=== PATIENT | female | born 1985 | race Caucasian/White ===

== ENCOUNTER → 2017-03-15 | Outpatient (CLI) | payer OTHER ==
[2017-01-15 15:14] VITALS: BP 123/55
[~2017-03-15] MED LIST: ACET325T9 PO; AMOX1TAB61 PO; LEVO75TA5 PO; MONT10TA9 PO; PNV1TABL25 PO; PRED20TA PO; TRAM50TA PO
--- NOTE | 2017-03-15 15:12 | RAD ---
Cervical spine radiographs History: Neck pain with radiculopathy into the right arm. Comparison: None. Findings: AP, lateral, and open-mouth odontoid views of the cervical spine. No acute fracture or malalignment is identified. No prevertebral soft tissue swelling is seen. No significant degeneration is appreciated. Impression: Unremarkable cervical spine radiographs.
== END | disposition home or self-care (01) ==
LOC: DXRADRC 14:44
PROVIDERS: ATTEND Physician Assistant Medical
DX: M54.12 Radiculopathy, cervical region (principal)
CPT/HCPCS: 72040

== ENCOUNTER 2017-07-12 15:31 | Emergency (ER) | payer OTHER ==
[2017-07-12] MEDS ORDERED: METOCLOPRAMIDE HCL 10 MG/2 ML VIAL. IV ONE (16:00)
[2017-07-12] MEDS ORDERED: PROCHLORPERAZINE 10 MG TABLET. PO ONE (16:00)
[2017-07-12] MEDS ORDERED: diphenhydrAMINE 50 MG/ML VIAL IVP ONE (16:00)
--- NOTE | 2017-07-12 17:24 | PHYS DOC ---
Past History Past Medical History: Hyperthyroid, Other Past Surgical History: Appendectomy, Cholecystectomy, Alcohol Use: None Drug Use: None Adult General Chief Complaint Chief Complaint: HEADACHE HPI HPI Patient is a 32-year-old female with a history of migraine headaches who comes to the ED with a complaint of a migraine headache that was present when she woke up at 6 AM today. It has worsened slowly throughout the day. Patient originally went to work but then left work early at about 10 AM. She took some Phenergan, Tylenol, and Advil at home. She tried to sleep but was not able to. Her friend brought her to the ED for treatment. Patient states that the headache is across her forehead. She has felt a bit dizzy and had some nausea with it. She denies recent URI or congestion. She has not had vomiting or diarrhea but has had nausea today. Patient is in good general health. She denies . Her is deployed. Review of Systems Review of Systems Constitutional: Denies fever or chills [] Eyes: Denies change in visual acuity, redness, or eye pain [] HENT: Denies nasal congestion or sore throat [] GI: Nausea but no vomiting : Denies Neurologic: As in history of present illness Current Medications Current Medications Current Medications Medications (Trade) Dose Ordered Sig/Traci Start Time Stop Time Status Last Admin Dose Admin Diphenhydramine HCl (Benadryl) 25 mg 1X ONCE 07/12/17 16:00 07/12/17 17:09 DC 07/12/17 16:30 25 MG Fentanyl Citrate (Fentanyl 2ml Vial) 75 mcg 1X ONCE 07/12/17 17:30 07/12/17 17:31 Metoclopramide HCl (Reglan) 10 mg 1X ONCE 07/12/17 16:00 07/12/17 16:01 DC 07/12/17 16:29 10 MG Prochlorperazine Maleate (Compazine) 10 mg 1X ONCE 07/12/17 16:00 07/12/17 16:01 DC 07/12/17 16:30 10 MG Allergies Allergies Allergies Coded Allergies Type Severity Reaction Last Updated Verified codeine Allergy Severe Itching 02/07/16 Yes diphenhydramine Allergy Severe Anxiety 02/07/16 Yes corn Allergy Unknown 02/07/16 Yes gluten Allergy Unknown 02/07/16 Yes soy Allergy Unknown 02/07/16 Yes Physical Exam Physical Exam Constitutional: Well developed, well nourished, no acute distress, non-toxic appearance. [] HENT: Normocephalic, atraumatic, bilateral external ears normal, oropharynx moist, no oral exudates, nose normal. [] Eyes: PERRLA, EOMI, conjunctiva normal, no discharge. [] Neck: Normal range of motion, no tenderness, supple, no stridor. [] Cardiovascular:Heart rate regular rhythm, no murmur [] Lungs & Thorax: Bilateral breath sounds clear to auscultation [] Abdomen: Bowel sounds normal, soft, no tenderness, no masses, no pulsatile masses. [] Skin: Warm, dry, no erythema, no rash. [] Back: No tenderness, no CVA tenderness. [] Extremities: No tenderness, no cyanosis, no clubbing, ROM intact, no edema. [] Neurologic: Alert and oriented X 3, normal motor function, normal sensory function, no focal deficits noted. [] Psychologic: Affect normal, judgement normal, mood normal. [] Current Patient Data Vital Signs Vital Signs Date Time Temp Pulse Resp B/P (MAP) Pulse Ox O2 Delivery O2 Flow Rate FiO2 07/12/17 15:46 98.4 82 20 100 Room Air EKG EKG [] Radiology/Procedures Radiology/Procedures [] Course & Med Decision Making Course & Med Decision Making Pertinent Labs and Imaging studies reviewed. (See chart for details) 32-year-old female with a history of migraines who presents with a headache today that was not thunderclap in onset, is not the worst headache she's ever had, it is typical for migraines for her. Patient was treated with IV fluids, IV Benadryl, Reglan, and Compazine. Her chart had stated an allergy to Benadryl but the reported side effect was "anxiety" so I believe that a cocktail including Benadryl would be safe. Recheck of the patient by ED RN, patient states that she is no better at all. She called for her friend to come back and was given a dose of IV fentanyl prior to discharge. See instructions for plan. [] Dragon Disclaimer Dragon Disclaimer This chart was dictated in whole or in part using Voice Recognition software in a busy, high-work load, and often noisy Emergency Department environment. It may contain unintended and wholly unrecognized errors or omissions. Departure Departure: Impression: Primary Impression: Migraine Disposition: 01 HOME, SELF-CARE Condition: IMPROVED Referrals: OSVALDO REED (PCP) Patient Instructions: Migraine Headache, [id number] Additional Instructions: Go home and rest, try to get several hours of sleep in a dark quiet room. No driving for 12 hours because of the medications you were given in the emergency department. If not improving like you usually do, see your doctor for recheck or return to emergency. EARLINE KERNS MD Jul 12, 2017 17:24
[2017-07-12] MEDS ORDERED: fentaNYL PF 100 MCG/2 ML VIAL IV ONE (17:30)
[2017-07-12 17:43] VITALS: BP 113/65
== END 2017-07-12 17:47 | disposition home or self-care (01) ==
LOC: ER 15:31
DX: G43.909 Migraine, unspecified, not intractable, without status migrainosus (principal); E05.90 Thyrotoxicosis, unspecified without thyrotoxic crisis or storm; Z88.5 Allergy status to narcotic agent; Z88.8 Allergy status to other drugs, medicaments and biological substances; Z91.018 Allergy to other foods
CPT/HCPCS: 96374; 96375; 99284; J1200; J2765; J3010; Q0164

== ENCOUNTER → 2017-10-18 | Outpatient (CLI) | payer OTHER ==
--- NOTE | 2017-10-18 12:29 | RAD ---
Cervical spine, 3 views, 10/18/2017: History: Neck pain No fracture or dislocation is identified. The intervertebral disc spaces are well-maintained. Several minimal scattered marginal spurs are noted. The prevertebral soft tissues are unremarkable. IMPRESSION: No acute cervical spine abnormality is detected.
== END | disposition home or self-care (01) ==
LOC: DXRAD 11:36
PROVIDERS: ATTEND Nurse Practitioner Family
DX: M54.2 Cervicalgia (principal)
CPT/HCPCS: 72040

== ENCOUNTER 2017-12-10 07:04 | Emergency (ER) | payer OTHER ==
--- NOTE | 2017-12-10 08:11 | PHYS DOC ---
General Chief Complaint: SORE THROAT Stated Complaint: EARACHE,SORE THROAT X 2 DAYS Time Seen by MD: 07:22 Source: patient Exam Limitations: no limitations Problems: History of Present Illness Initial Comments Patient is a 32-year-old female who comes to the ED complaining of sore throat earache and subjective fevers for the past 2 days. Patient has also brought her daughter with similar symptoms who tests positive for strep pharyngitis. Patient states she hasn't been eating and drinking well due to discomfort, she denies neck stiffness or rash. She is able to tolerate by mouth fluids but solid foods causes great discomfort. No pre-arrival treatment patient states she gets frequent strep infections and has resistance. She is afebrile on arrival heart rate is 130 bpm improves to 113 bpm after 1 L normal saline IV fluid bolus tachycardia attributed to hypovolemia. Timing/Duration: 24 hours Severity: severe Modifying Factors: worse with eating Associated Symptoms: fever/chills, other Allergies: Coded Allergies: codeine (Verified Allergy, Severe, Itching, 02/07/16) diphenhydramine (Verified Allergy, Severe, Anxiety, 02/07/16) corn (Verified Allergy, Unknown, 02/07/16) gluten (Verified Allergy, Unknown, 02/07/16) soy (Verified Allergy, Unknown, 02/07/16) Past Medical History Medical History: other (hypothyroidism) Surgical History: appendectomy, cholecystectomy ( section) Social History Smoker: non-smoker Alcohol: none Drugs: none Review of Systems Constitutional: see HPI EENTM: throat pain, denies throat swelling, denies mouth swelling Respiratory: cough, denies shortness of breath, denies wheezing Cardiovascular: denies chest pain, denies palpitations Gastrointestinal: denies nausea, denies vomiting Musculoskeletal: denies back pain, denies joint swelling, denies neck pain Psychiatric/Neurological: headache, denies numbness, denies paresthesia Physical Exam General Appearance: WD/WN, no apparent distress Eyes: bilateral eye normal inspection, bilateral eye PERRL, bilateral eye EOMI Ear, Nose, Throat: hearing grossly normal, normal ENT inspection, normal pharynx (pharynx beefy red with exudate airway is patent) Neck: full range of motion, supple, lymphadenopathy (R), lymphadenopathy (L) Respiratory: normal breath sounds, no respiratory distress Cardiovascular: normal peripheral pulses, tachycardia Gastrointestinal: non tender, soft Extremities: non-tender, normal inspection Neurologic/Psychiatric: endodontist II-XII nml as tested, no motor/sensory deficits, alert, oriented x 3 Skin: normal color, warm/dry Orders, Labs, Meds Rapid strep positive Influenza negative RN concerned about patient's heart rate at discharge, 1 L normal saline IV and EKG ordered. Patient has denied chest pain or trouble breathing. EKG: Sinus tachycardia 120 bpm, no ST segment elevation interpreted by me. Heart rate improved to 113 bpm after 1 L bolus, patient agrees to hydrate aggressively. I discussed signs and symptoms to monitor as well as indications for urgent return to the department. Patient states that she typically requires both penicillin intramuscularly and an oral prescription which I agree to. Discussed nkmi-qua-ceazqif and prescription medications and the patient's questions were answered to her satisfaction. Work excuse provided she expressed agreement and understanding of the treatment plan. Departure Time of Disposition: 08:35 Disposition: 01 HOME, SELF-CARE Diagnosis: strep pharyngitis Condition: STABLE Patient Instructions: Strep Throat Additional Instructions: Please review the patient education materials given by ED staff. Off work through December 13 and until 24 hours after last fever. Aggressive hydration to prevent dehydration. [id number] Tylenol, ibuprofen, and analgesic throat sprays as needed. Follow-up with your doctor next week for recheck. Return to ED with new or changing symptoms. YEISON ACOSTA DO Dec 10, 2017 08:11
[2017-12-10 08:26] LABS: INFLUENZA A PATIENT NEGATIVE (NEGATIVE); INFLUENZA B PATIENT NEGATIVE (NEGATIVE)
[2017-12-10] MEDS ORDERED: AZIT250T PO (08:35)
[2017-12-10] MEDS ORDERED: PENICILLIN G BENZATHINE LA 1,200,000 UNIT/2 ML DISP.SYRIN. IM ONE (09:00)
[2017-12-10] MEDS ORDERED: IV NORMAL SALINE 1,000ML 1,000 ML IV SCH (09:24)
[2017-12-10 11:00] VITALS: BP 142/87
--- NOTE | 2017-12-10 17:34 | EKG ---
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
== END 2017-12-10 11:00 | disposition home or self-care (01) ==
LOC: ER 07:04
DX: J02.0 Streptococcal pharyngitis (principal); H92.09 Otalgia, unspecified ear; E03.9 Hypothyroidism, unspecified; Z88.5 Allergy status to narcotic agent; Z88.8 Allergy status to other drugs, medicaments and biological substances; Z91.018 Allergy to other foods
CPT/HCPCS: 87804; 87880; 93005; 96360; 96361; 96372; 99285; J0561; J7030

== ENCOUNTER 2019-05-18 07:11 | Emergency (ER) | payer OTHER ==
[~2019-05-18] VITALS: Ht 165.1 cm; Wt 98.2 kg
[~2019-05-18 07:11] MED LIST changes: +AZIT250T PO; +MONT10TA80 PO; -MONT10TA9 PO
[2019-05-18 07:29] VITALS: BP 117/75
[2019-05-18] MEDS ORDERED: IV NORMAL SALINE 1,000ML 1,000 ML IV ONE (07:30)
[2019-05-18] MEDS ORDERED: KETOROLAC 30 MG/ML VIAL. IV ONE (07:30)
[2019-05-18] MEDS ORDERED: METOCLOPRAMIDE HCL 10 MG/2 ML VIAL. IV ONE (07:30)
--- NOTE | 2019-05-18 07:35 | PHYS DOC ---
Past History Past Medical History: Hypothyroid, Other Past Surgical History: Appendectomy, Cholecystectomy, Alcohol Use: Occasionally Drug Use: None Adult General Chief Complaint Chief Complaint: INSECT BITE HPI HPI 34-year-old female presents with rash and concern for abscess. The patient had a bug bite while she was in [place] several days ago. It became an erythematous area on her left thorax. She went to urgent care 2 days ago and was given doxy cycline. She has had 2-1/2 days of dosing so far. She presents today because the area is still painful. She has an erythematous area 8 cm in diameter with a half centimeter white central area. She tells me that is very tender to the touch. The redness has spread outside of a marker border that was drawn 2 days ago. Patient also states she has had significant headache today. She denies fever or chills. No history of skin infections. Review of Systems Review of Systems Constitutional: Denies fever or chills [] Eyes: Denies change in visual acuity, redness, or eye pain [] HENT: Denies nasal congestion or sore throat [] Respiratory: Denies cough or shortness of breath [] Cardiovascular: No additional information not addressed in HPI [] GI: Denies abdominal pain, nausea, vomiting, bloody stools or diarrhea [] : Denies dysuria or hematuria [] Musculoskeletal: Denies back pain or joint pain [] Integument: Rash [] Neurologic: Headache. Denies focal weakness or sensory changes [] Endocrine: Denies polyuria or polydipsia [] All other systems were reviewed and found to be within normal limits, except as documented in this note. Allergies Allergies Allergies Coded Allergies Type Severity Reaction Last Updated Verified codeine Allergy Severe Itching 02/07/16 Yes diphenhydramine Allergy Severe Anxiety 02/07/16 Yes corn Allergy Unknown 02/07/16 Yes gluten Allergy Unknown 02/07/16 Yes soy Allergy Unknown 02/07/16 Yes Physical Exam Physical Exam Constitutional: Well developed, well nourished, no acute distress, non-toxic appearance. [] HENT: Normocephalic, atraumatic, bilateral external ears normal, oropharynx m oist, no oral exudates, nose normal. [] Eyes: PERRLA, EOMI, conjunctiva normal, no discharge. [] Neck: Normal range of motion, no tenderness, supple, no stridor. [] Cardiovascular:Heart rate regular rhythm, no murmur [] Lungs & Thorax: Bilateral breath sounds clear to auscultation [] Abdomen: Bowel sounds normal, soft, no tenderness, no masses, no pulsatile masses. [] Skin: Warm, erythematous area on the left thorax 8 cm in diameter. There appears to be a 2 cm central mass deep under the skin[] Back: No tenderness, no CVA tenderness. [] Extremities: No tenderness, no cyanosis, no clubbing, ROM intact, no edema. [] Neurologic: Alert and oriented X 3, normal motor function, normal sensory func tion, no focal deficits noted. [] Psychologic: Affect normal, judgement normal, mood normal. [] Current Patient Data Vital Signs Vital Signs Date Time Temp Pulse Resp B/P (MAP) Pulse Ox O2 Delivery O2 Flow Rate FiO2 05/18/19 07:23 98.7 85 18 117/75 (89) 99 Room Air EKG EKG [] Radiology/Procedures Radiology/Procedures [] Course & Med Decision Making Course & Med Decision Making Pertinent Labs and Imaging studies reviewed. (See chart for details) The patient's labs are unremarkable. Ultrasound of the patient's breast showed possibility of small abscess. I attempted to jose antonio this with a scalpel, but did not get any purulent fluid. A wound culture was not sent. Not sure the patient is feeling doxycycline therapy. I will add Bactrim DS for 7 days. For the patient's headache, I have given her 1 L normal saline, 30 mg of Toradol, 10 mg of Reglan. The patient has Benadryl listed as an allergy, so have not included Benadryl in her headache cocktail. The patient's heart rate, blood pressure, and temperature were normal on arrival. Despite her headache, these normal vitals suggest against meningitis. The patient also has no neck pain or stiffness. The patient's headache is rated 50% improved at this time. She feels like she can go home and rest. She is stable for discharge at this time. [] Dragon Disclaimer Dragon Disclaimer This electronic medical record was generated, in whole or in part, using a voice recognition dictation system. Departure Departure: Impression: Primary Impression: Cellulitis of left abdominal wall Additional Impression: Headache Disposition: HOME, SELF-CARE Condition: STABLE Referrals: OSVALDO REED (PCP) Patient Instructions: Cellulitis, [id number] Scripts Sulfamethoxazole/Trimethoprim (BACTRIM DS TABLET) 1 Each Tablet 1 TAB PO BID for cellulitis, #14 TAB Prov: SHEN JEFFERY DO 05/18/19 Problem Qualifiers Additional Impression: Headache Headache type: tension-type Headache chronicity pattern: acute headache Intractability: not intractable Qualified Codes: G44.209 - Tension-type headache, unspecified, not intractable SHEN JEFFERY DO May 18, 2019 07:35
[2019-05-18 07:58] LABS: BASO % 1 % (0-3); EOS # 0.4 x10^3/uL (0.0-0.7); EOS % 4 % (0-3); HEMATOCRIT 43.6 % (36.0-47.0); HEMOGLOBIN 14.6 g/dL (12.0-15.5); LYMPH # 1.8 x10^3/uL (1.0-4.8); LYMPH % 20 % (24-48); MEAN CORPUSCULAR HEMOGLOBIN 30 pg (25-35); MEAN CORPUSCULAR HGB CONC 33 g/dL (31-37); MEAN CORPUSCULAR VOLUME 90 fL (79-100); MONO # 0.4 x10^3/uL (0.0-1.1); MONO % 5 % (0-9); NEUT # 6.3 x10^3uL (1.8-7.7); NEUT % 70 % (31-73); PLATELET COUNT 204 x10^3/uL (140-400); RED BLOOD COUNT 4.87 x10^6/uL (3.50-5.40); RED CELL DISTRIBUTION WIDTH 13.9 % (11.5-14.5)
[2019-05-18] MEDS ORDERED: KETOROLAC 60 MG/2 ML VIAL. IM ONE (08:00)
[2019-05-18 08:10] LABS: ALBUMIN 4.1 g/dL (3.4-5.0); ALBUMIN/GLOBULIN RATIO 1.4 (1.0-1.7); CALCIUM 9.6 mg/dL (8.5-10.1); CREATININE 0.7 mg/dL (0.6-1.0); GFR 95.2; POTASSIUM 4.1 mmol/L (3.5-5.1); TOTAL BILIRUBIN 0.2 mg/dL (0.2-1.0)
[2019-05-18] MEDS ORDERED: SULF1TAB24 PO (08:29)
== END 2019-05-18 09:53 | disposition home or self-care (01) ==
LOC: ER 07:11
DX: L03.311 Cellulitis of abdominal wall (principal); G44.209 Tension-type headache, unspecified, not intractable; N61.1 Abscess of the breast and nipple
CPT/HCPCS: 10060; 36415; 80053; 85025; 96372; 96374; 99285; J1885; J2765; J7030

== ENCOUNTER → 2020-08-28 | Outpatient (CLI) | payer OTHER ==
[~2020-08-28] MED LIST changes: +SULF1TAB24 PO
--- NOTE | 2020-08-28 13:17 | RAD ---
FOOT LEFT 3V DATE: 08/28/2020 12:00 AM INDICATION: Reason: LEFT FOOT PAIN IN ARCH OF FOOT, NO INJURY / Spl. Instructions: / History: COMPARISON: None. FINDINGS: Bones: There is no evidence of acute fracture or dislocation. Joints: The joint spaces are normal. Miscellaneous: None. IMPRESSION: No acute osseous abnormality. Electronically signed by: Ja Baltazar MD (08/28/2020 1:14 PM) [id number]
== END ==
LOC: PMG 11:02
PROVIDERS: ATTEND Physician Assistant Medical
DX: M79.672 Pain in left foot (principal)
CPT/HCPCS: 73630

== ENCOUNTER → 2020-10-14 | Outpatient (CLI) | payer OTHER ==
--- NOTE | 2020-10-14 17:23 | RAD ---
Bilateral AP and lateral hip radiographs to include an AP pelvis 10/14/2020 CLINICAL HISTORY: Bilateral hip pain. An AP digital radiograph of the pelvis was obtained. AP and lateral digital radiographs of both hips were obtained. No pelvic bone fracture is seen. Both hips are intact. No significant degenerative changes are noted. IMPRESSION: No acute osseous abnormality is seen. Electronically signed by: Ronald Tan MD (10/14/2020 5:19 PM) [id number]
== END ==
LOC: RAD 15:37
PROVIDERS: ATTEND Physician Assistant Medical
DX: M25.551 Pain in right hip (principal); M25.552 Pain in left hip
CPT/HCPCS: 73521

== ENCOUNTER → 2021-06-20 | Outpatient (CLI) | payer OTHER ==
--- NOTE | 2021-06-20 14:02 | RAD ---
XR KNEE 3 VIEWS DATE: 06/20/2021 1:44 PM INDICATION: KNEE PAIN COMPARISON: None. FINDINGS: Right: There is no evidence of acute fracture or dislocation. The joint spaces are normal. There is n o joint effusion. Left: There is no evidence of acute fracture or dislocation. The joint spaces are normal. There is no joint effusion. IMPRESSION: Normal osseous structures Electronically signed by: Ja Baltazar MD (06/20/2021 1:59 PM) [id number]
== END ==
LOC: RAD 13:18
PROVIDERS: ATTEND Psychiatry & Neurology Neurology
DX: M71.22 Synovial cyst of popliteal space [Baker], left knee (principal); M71.21 Synovial cyst of popliteal space [Baker], right knee
CPT/HCPCS: 73562

== ENCOUNTER → 2021-11-18 | Outpatient (CLI) | payer OTHER ==
--- NOTE | 2021-11-18 13:00 | RAD ---
EXAM: Bilateral lower extremity arterial Doppler. HISTORY: Claudication. COMPARISON: None. FINDINGS: Grayscale and Doppler analysis of the lower extremity arterial systems was performed. There are triphasic waveforms throughout bilaterally. The dorsalis pedis arteries are patent bilatera lly. There are no clearly elevated peak systolic velocities bilaterally. IMPRESSION: 1. No evidence of hemodynamically significant stenosis. Electronically signed by: Leda Robison MD (11/18/2021 12:58 PM) [id number]
== END ==
LOC: US 08:50
PROVIDERS: ATTEND Physician Assistant Medical
DX: I73.9 Peripheral vascular disease, unspecified (principal)
CPT/HCPCS: 93925